=== PATIENT | female | born 1965 ===

== ENCOUNTER 2023-03-13 07:38 | Day surgery (SDC) | payer OTHER ==
[2023-02-20 10:05] LABS: HEMATOCRIT 37.7 % (36.0-45.00); HEMOGLOBIN 11.9 g/dL (12.0-15.00); MEAN CELL VOLUME 63.4 fL (80.00-100.00); MEAN CORPUSCULAR HEMOGLOBIN 20.1 pg (27.00-32.0); MEAN CORPUSCULAR HGB CONC 31.7 g/dl (32.0-36.0); PLATELET COUNT 254 K/uL (150-450); RED BLOOD COUNT 5.94 M/uL (4.00-6.00)
[2023-02-20 10:11] LABS: URINE APPEARANCE Clear; URINE BILIRRUBIN Negative (NEGATIVE); URINE BLOOD Negative; URINE COLOR Yellow; URINE GLUCOSE Negative (NEGATIVE); URINE LEUKOCYTE Negative; URINE NITRATE Negative; URINE PROTEIN Negative (NEGATIVE); URINE UROBILINOGEN 0.2 E.U./dl
[2023-02-20 10:17] LABS: URINE BACTERIA 113.3 uL (0.0-1933); URINE EPITHELIAL CELLS 5.3 uL (0.0-38.8); URINE RBC 18.3 uL (0.0-20.8); URINE WBC 4.6 uL (0.0-23.2)
[2023-02-20 10:50] LABS: INR 1.03; PARTIAL THROMBOPLASTIN TIME 23.9 SECONDS (22.0-34.0); PROTHROMBIN TIME 10.8 SECONDS (9.0-11.5)
[2023-02-20 10:58] LABS: ALBUMIN 4.5 gm/dL (3.4-5.0); BILIRUBIN TOTAL 1.27 mg/dL (0.3-1.2); CALCIUM 9.9 mg/dL (8.5-10.1); CREATININE SERUM 0.68 mg/dL (0.55-1.02); GFR 88.87; GLOBULINA 3.3 G/DL (2.4-3.5); POTASSIUM 4.63 mEq/L (3.5-5.1); TOTAL PROTEIN 7.8 gm/dL (6.4-8.2); TSH 1.75 uIU/mL (0.358-3.74)
[~2023-03-13] VITALS: Ht 157.5 cm; Wt 63.5 kg
[~2023-03-13 07:38] MED LIST: COZAAR25 MG PO; CRESTOR20 MG PO; PLAVIX75 MG PO; TOPROL XL25 M1 PO
[2023-03-13] MEDS ORDERED: MORGIDOX100 MG PO (14:46)
[2023-03-13] MEDS ORDERED: Tylenol #3 PO (14:46)
== END 2023-03-13 18:00 | disposition home or self-care (01) ==
LOC: CIR.AMB 07:38
PROVIDERS: ATTEND Obstetrics & Gynecology
DX: N84.0 Polyp of corpus uteri (principal); D25.0 Submucous leiomyoma of uterus; Z20.822 Contact with and (suspected) exposure to COVID-19; Z88.6 Allergy status to analgesic agent